=== PATIENT | female | born 1985 | race Caucasian/White ===

== ENCOUNTER 2020-06-21 13:42 | Emergency (ER) | payer SELFPAY ==
[2020-06-21 13:57] VITALS: BP 174/80; PULSE 85; RESP 16; TEMP 37.1; O2SAT 100
--- NOTE | 2020-06-21 16:03 | ED.ABDPAIN ---
HPI - Abdominal Pain General Chief Complaint: Abdominal Pain Stated Complaint: abdominal pain Source: patient and RN notes reviewed Limitations: no limitations History of Present Illness HPI narrative: The patient, who is an occ smoker/drinker on mood meds , presents with right, upper abdominal pain. Patient states she has at least a week long history of right-sided, ant costal abdominal pain. This is associated with 1 week worsening of a year history of nausea and occasional vomiting; last emesis was a half a week ago. No fever, cough, blood/hematuria, dysuria/urgency --but she does have some urinary frequency yet she is drinking more. No vaginal discharge; she had a negative test yesterday. Symptoms are mild to moderate , worse w/ activity or sometimes eating that causes nausea, and improved x2day. She declines same day hospital referral after calling spouse and after Advised to go to higher-level care facility to higher level testing , because for possible diagnosis of serious problems [gallstones, kidney stone, atypical appendicitis, etc]. Related Data Home Medications Medication Instructions Recorded Confirmed bupropion HCl mg PO 06/21/20 clonazepam 06/21/20 desog-e.estradiol/e.estradiol tablet 06/21/20 [Shay (28)] dextroamphetamine-amphetamine 06/21/20 sertraline mg 06/21/20 Allergies Allergy/AdvReac Type Severity Reaction Status Date / Time codeine Allergy Intermediate FEELS YINAD Verified 11/06/18 15:25 dextromethorphan Allergy Intermediate FEELS WIERD Verified 11/06/18 15:25 Review of Systems Review of Systems: Narrative: The patient has been informed that they may have pre-hypertension or Hypertension based on a BP reading in the department. I recommend that the patient call the primary care provider listed on their discharge instructions or a physician of their choice this week to arrange follow up for further evaluation of possible pre-hypertension or Hypertension General/Constitutional: No weight loss,fever Respiratory: Denies: Hemoptysis Gastrointestinal: No Vomiting now-earlier in week, Bleeding-rectal Skin: No Lumps, eruption Neurologic: No Focal Weakness,Sz Hematologic: Denies: Petechiae/Purpura Psychiatric: No: Suicida ideationl PMFSH Comments At time of signature, agree with nursing past medical, surgical, social and family history. There is no relevant family history pertinent to the presenting complaint Exam Narrative: Exam Narrative: Appearance: Lean appearing, Conjunctiva clear Mouth/Throat: Normal appearing, Normal lips Supple Respiratory: Airway patent, No respiratory distress Abdomen: Soft, NT, No massess, No organomegaly (no rebound/ surgical signs), nl bowel sounds Musculoskeletal: Full ROM Skin: Warm, Dry Neurological: A&O x3, Normal affect Course Vital Signs Vital signs: Vital Signs Temperature 98.7 F 06/21/20 13:57 Pulse Rate 85 06/21/20 13:57 Respiratory Rate 16 06/21/20 13:57 Blood Pressure 174/80 H 06/21/20 13:57 Pulse Oximetry 100 06/21/20 13:57 Temperature 98.7 F 06/21/20 13:57 Pulse Rate 85 06/21/20 13:57 Respiratory Rate 16 06/21/20 13:57 Blood Pressure 174/80 H 06/21/20 13:57 Pulse Oximetry 100 06/21/20 13:57 MDM - Abdominal Pain Lab Data Labs: Urine Glucose Negative Reference Range: Negative Urine Bilirubin Negative Reference Range: Negative Urine Ketone 1+ Reference Range: Negative Urine Specific [place] 1.025 Reference Range:1.001-1.035 Urine Blood Negative Reference Range: Negative * * Urine pH 6.0 Reference Range: 5.0-9.0 Urine Protein Negative Reference Range: Negative Urine Urobilinogen 0.2 Reference Range: 0.2-1.0 Urine Nitrate
== END 2020-06-21 14:37 | disposition home or self-care (01) ==
PROVIDERS: Emergency Provider Emergency Medicine
DX: R10.11 Right upper quadrant pain (principal); F41.9 Anxiety disorder, unspecified; F32.9 Major depressive disorder, single episode, unspecified
CPT/HCPCS: 81003; 99213; G0463

== ENCOUNTER 2020-12-22 21:51 | Observation (INO) | payer OTHER, SELFPAY ==
[2020-12-22 22:21] VITALS: BP 158/94; PULSE 80
[2020-12-22 22:30] VITALS: BP 152/92; PULSE 72
[2020-12-22 22:38] LABS: Add Urine Microscopic? YES; Appearance Urine Cloudy (Clear); Bacteria Urine Trace /hpf; Bilirubin Urine Negative (Negative); Blood Urine Negative (Negative); Color Urine Yellow (Yellow); Glucose Urine UA Negative (Negative); Ketones Urine Negative (Negative); Leukocyte Esterase Ur Negative LEU/UL (Negative); Mucus Urine Rare /lpf; Nitrate Urine Negative (Negative); Protein Urine 1+ mg/dL (Negative); RBC Urine 0-2 /hpf (0-2); Specific Grav Ur 1.012 (1.001-1.035); Squamous Epithelial Cell Urine Rare /hpf (Few); Urobilinogen Urine Negative mg/dL (<2.0); WBC Urine 0-3 /hpf
[2020-12-22 22:40] VITALS: BMI 28.4
--- NOTE | 2020-12-22 22:41 | OBADM ---
This patient, Ivy Rizzo, admitted to the OB room [facility] Post 117 for observation. Patient/family oriented to hospital policies and general routines including ID bracelet, bed and alarms, visiting hours, pain management, procedures, bathroom and other care routines, personal items, smoking policy, room service/diet, and visiting hours. Patient/Family are encouraged to report perceived risks to care and to ask questions if they do not understand what they are told or what they should do.
[2020-12-22 22:45] VITALS: BP 151/90; PULSE 72
--- NOTE | 2020-12-22 22:52 | PC.NURSE ---
[id number] Mohsen Fernandes MD responded to page. Orders for blood draws. If labs OK then DC pt and follow up with Ralph GRAF in AM. Call back if pt pressures increase or bloodwork is abnormal.
[2020-12-22 23:00] VITALS: BP 157/91; PULSE 75
[2020-12-22 23:15] VITALS: BP 145/92; PULSE 86
[2020-12-22 23:20] LABS: Basophils Absolute Auto 0.1 K/mm3 (0.0-0.1); Basophils Percent Auto 0.4 % (0.2-1.2); Eosinophils Absolute Auto 0.2 K/mm3 (0-0.3); Eosinophils Percent Auto 1.2 % (0-4.4); Hematocrit 29.1 % (37.0-47.0); Hemoglobin 9.8 g/dL (12.0-15.0); Immature Granulocyte Absolute 0.21 K/mm3 (0.00-0.031); Immature Granulocyte Percent A 1.6 % (0-0.5); Lymphocytes Absolute Auto 1.76 K/mm3 (0.9-3.2); Lymphocytes Percent Auto 13.8 % (18.3-44.2); Mean Corpuscular HGB Conc 33.7 g/dl (32-36); Mean Corpuscular Hemoglobin 30.2 pg (26-34); Mean Corpuscular Volume 89.5 fl (80-100); Mean Platelet Volume 10.4 fl (7.4-10.4); Monocytes Absolute Auto 0.9 K/mm3 (0.1-0.6); Monocytes Percent Auto 7.3 % (2.6-8.5); Neutrophils Absolute Auto 9.7 K/mm3 (1.3-6.7); Neutrophils Percent Auto 75.7 % (45.5-73.1); Platelet Count Result 254 k/mm3 (150-375); Red Blood Count 3.25 M/mm3 (4.2-5.4); Red Cell Distribution Width 11.6 % (11.5-14.5); White Blood Count 12.8 K/mm3 (4.5-10.0)
[2020-12-22 23:30] VITALS: BP 147/87; PULSE 69
[2020-12-22 23:30] LABS: Alanine Aminotransferase 14 U/L (4-35); Albumin Level 3.4 g/dL (3.5-5.1); Alkaline Phosphatase 108 U/L (38-126); Anion Gap 3 mmol/L (8-16); Aspartate Amino Transferase 29 U/L (14-36); Bilirubin,Total 0.1 mg/dL (0.2-1.3); Blood Urea Nitrogen 18 mg/dL (7-17); Calcium 9.4 mg/dL (8.4-10.2); Carbon Dioxide 27 mmol/L (22-30); Chloride 105 mmol/L (98-107); Estimated CRCL calculation 82 ml/min; Estimated Glomerular Filt Rate > 60; Glucose 75 mg/dL (65-105); Potassium 4.1 mmol/L (3.4-5.0); Sodium 135 mmol/L (137-145); Uric Acid 5.4 mg/dL (2.5-7.5)
--- NOTE | 2020-12-25 08:47 | P.PNOB_ITS ---
OB - Triage/Final Diagnosis Visit Information Reason for evaluation: threatened labor Comments/Additional reasons for admission: I have assessed the risk for this patient, Ivy Rizzo, and determined that she would benefit from observation care. Evaluation Laboratory results: Laboratory Tests 12/22/20 12/22/20 12/22/20 22:28 23:11 23:11 WBC 12.8 H RBC 3.25 L Hgb 9.8 L Hct 29.1 L MCV 89.5 MCH 30.2 MCHC 33.7 RDW 11.6 Plt Count 254 MPV 10.4 Immature Gran % (Auto) 1.6 H Neut % (Auto) 75.7 H Lymph % (Auto) 13.8 L [place] % (Auto) 7.3 Eos % (Auto) 1.2 Baso % (Auto) 0.4 Lymph # (Auto) 1.76 [place] # (Auto) 0.9 H Eos # (Auto) 0.2 Baso # (Auto) 0.1 Abs Immat Gran (auto) 0.21 H Absolute Neuts (auto) 9.7 H Absolute Nucleated RBC 0.0 Nucleated RBC % 0.0 Sodium 135 L Potassium 4.1 Chloride 105 Carbon Dioxide 27 Anion Gap 3 L BUN 18 H Creatinine 0.90 Estim Creat Clear Calc 82 Estimated GFR > 60 Glucose 75 Uric Acid 5.4 Calcium 9.4 Total Bilirubin 0.1 L AST 29 ALT 14 Alkaline Phosphatase 108 Total Protein 6.0 L Albumin 3.4 L Urine Color Yellow Urine Appearance Cloudy H Urine pH 7.0 Ur Specific [place] 1.012 Urine Protein 1+ H Urine Glucose (UA) Negative Urine Ketones Negative Ur Blood (Man) Negative Urine Nitrate Negative Urine Bilirubin Negative Urine Urobilinogen Negative Leukocyte Esterase Rfl Negative Urine RBC 0-2 Urine WBC 0-3 Ur Squamous Epith Cells Rare Urine Bacteria Trace Urine Mucus Rare
== END 2020-12-23 00:05 | disposition home or self-care (01) ==
PROVIDERS: Admitting Provider Obstetrics & Gynecology; Visit Provider Obstetrics & Gynecology
DX: O47.9 False labor, unspecified (principal); Z3A.00 Weeks of gestation of pregnancy not specified
CPT/HCPCS: 36415; 80053; 81001; 84550; 85025; G0378; G0379

== ENCOUNTER 2020-12-25 09:26 | Outpatient (CLI) | payer OTHER, SELFPAY ==
[2020-12-25 09:49] VITALS: BMI 28.0
[2020-12-25 10:03] LABS: Collection Time Urine 24 HOURS
[2020-12-25 10:11] LABS: Creatinine Clearance Urine 80.5 ml/min (75-125); Creatinine Urine 87.2 mg/dL; Patient Weight 174 Lbs; Total Protein Urine 24 Hr 351 MG/DAY (28-141); Total Protein Urine Random 27 mg/dL; Total Volume 24 Hour Urine 1300 ml
== END 2020-12-25 09:27 | disposition home or self-care (01) ==
LOC: ANHOBOP 09:42
PROVIDERS: Visit Provider Obstetrics & Gynecology
DX: O13.9 Gestational [pregnancy-induced] hypertension without significant proteinuria, unspecified trimester (principal); Z3A.00 Weeks of gestation of pregnancy not specified
CPT/HCPCS: 81050; 82575; 84156

== ENCOUNTER 2020-12-26 12:46 | Observation (INO) | payer OTHER, SELFPAY ==
[2020-12-26] VITALS (8 sets, daily range): BP systolic 145–155; BP diastolic 81–94; PULSE 72–88; RESP 18; TEMP 36.8; O2SAT 97; BMI 29.3
--- NOTE | ~2020-12-26 | US_ITS ---
EXAMINATION: US OB BPP wo non-stress DATE: 12/26/2020 14:55 INDICATION: Hypertension. Third trimester of TECHNIQUE: Real-time pelvic ultrasound was performed. The interpreting radiologist was not present fo r the study. COMPARISON: None. FINDINGS: There is a single living fetus in vertex presentation. Placental tissue seen along the anterior and a long the posterior wall of the uterus. A direct communication between the to portions of the placenta is not identified on the provided imaging. Also not identified is the placental side of cord implant ation. heart rate is 135 beats per minute (bpm). Amniotic fluid volume is subjectively normal. Biophysical profile performed by the technologist: breathing (30 sec sustained breathing in 30 minutes): 2 out of 2 movement (3 gross body movements in 30 minutes): 2 out of 2 tone (one episode of tnnrddq-geadeutrm-swmmehg limb movement): 2 out of 2 Amniotic fluid pocket (2 cm): 2 out of 2 Total score: 8 out of 8 IMPRESSION: 1. Single living fetus in vertex presentation. 2. Biophysical profile 8 out of 8. Reviewed, dictated and finalized at location B.
--- NOTE | 2020-12-26 13:15 | OBADM ---
This patient, Ivy Rizzo, admitted to the OB room [facility] for observation. Patient/family oriented to hospital policies and general routines including ID bracelet, bed and alarms, visiting hours, pain management, procedures, bathroom and other care routines, personal items, smoking policy, room service/diet, and visiting hours. Patient/Family are encouraged to report perceived risks to care and to ask questions if they do not understand what they are told or what they should do.
--- NOTE | 2020-12-26 13:22 | PM.IMHP ---
H&P: HPI History of Present Illness Date/Time: 12/26/20 [id number] at 30w3d who presents for complaints of shortness of breath and overall malaise. Pt had been seen earlier in the week for wrosening edema and elevated BP. she wasstarted on labetalol and had PIH labs drawn. Initial lab work was wnl but 24 hr urine protien was elevated ruling her in for preeclampsia. Pt denies scotoma or RUQ pain. Pt states she has had worsening anxiety and a feeling of impending doom. She endoreses good movement. Chief Complaint: preeclampsia Review of Systems Review of Systems: All systems reviewed & are unremarkable except as noted in HPI and below Meds Home Medications and Allergies Home Medications Medication Instructions Recorded Confirmed Type clonazepam 06/21/20 History sertraline mg 06/21/20 History Allergies Allergy/AdvReac Type Severity Reaction Status Date / Time codeine Allergy Intermediate FEELS WIERD Verified 11/06/18 15:25 dextromethorphan Allergy Intermediate FEELS WIERD Verified 11/06/18 15:25 Vital Signs Vital Signs - 24 hr 12/26/20 13:16 Pulse Rate 79 Blood Pressure 146/87 H Exam Const: General: anxious HENMT: Head: atraumatic Eyes: General: appearance normal, both eyes and all related structures Neck: Neck: normal visual inspection Resp: Effort & Inspection: normal respiratory effort and able to speak in complete sentences Cardio: Jugular venous distension: no JVD Rate: regular rate Rhythm: regular rhythm GI: Inspection: normal to inspection (Gravid) GI Palp: No abdominal tenderness Back/Spine/Pelvis: Back: no CVA tenderness Skin: General skin exam: normal color and no rashes or lesions noted Neuro: General: oriented to person and deep tendon reflexes 2+ bilaterally Extrem: General: full ROM and pedal edema (3+) bilaterally Assessment and Plan Assessment and plan (1) Preeclampsia: Code(s): O14.90 - Unspecified pre-eclampsia, unspecified trimester Status: Acute Assessment and Plan: mild to severe range BP in office 24 hr TUP 351 mg on 12/25/20 on labetalol 200 mg BID c/o LE edema and GARCIA. denies scotoma or RUQ pain PIH labs on 12/22/20 wnl will repeat PIH labs today plan for betamethasone for potential early delivery will obtain BPP today plan for overnight observation continue to monitor BP, will adjust medications as necessary (2) Supervision of high risk , unspecified, third trimester: Code(s): O09.93 - Supervision of high risk , unspecified, third trimester Status: Acute Assessment and Plan: 35 yo at 30w3d Rh+ all PNL reviewed and normal (3) Advanced maternal age during : Status: Acute (4) History of gestational hypertension: Code(s): Z87.59 - Personal history of other complications of , childbirth and the puerperium Status: Acute (5) Narcolepsy: Code(s): G47.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
[2020-12-26] MEDS: BETAMETHASONE SOD PHOS/ACETATE 30 MG/5 ML VIAL (14:07)
[2020-12-26 15:35] LABS: Basophils Absolute Auto 0.1 K/mm3 (0.0-0.1); Basophils Percent Auto 0.5 % (0.2-1.2); Eosinophils Absolute Auto 0.1 K/mm3 (0-0.3); Hematocrit 27.7 % (37.0-47.0); Hemoglobin 9.2 g/dL (12.0-15.0); Immature Granulocyte Absolute 0.31 K/mm3 (0.00-0.031); Immature Granulocyte Percent A 2.5 % (0-0.5); Lymphocytes Absolute Auto 1.19 K/mm3 (0.9-3.2); Lymphocytes Percent Auto 9.8 % (18.3-44.2); Mean Corpuscular HGB Conc 33.2 g/dl (32-36); Mean Corpuscular Hemoglobin 30.2 pg (26-34); Mean Corpuscular Volume 90.8 fl (80-100); Mean Platelet Volume 10.1 fl (7.4-10.4); Monocytes Absolute Auto 0.5 K/mm3 (0.1-0.6); Monocytes Percent Auto 4.3 % (2.6-8.5); Neutrophils Percent Auto 81.9 % (45.5-73.1); Nucleated Red Blood Cells Perc 0.3 % (0.0-0.2); Platelet Count Result 229 k/mm3 (150-375); Red Blood Count 3.05 M/mm3 (4.2-5.4); White Blood Count 12.2 K/mm3 (4.5-10.0)
[2020-12-26 15:46] LABS: Alanine Aminotransferase 13 U/L (4-35); Albumin Level 3.1 g/dL (3.5-5.1); Alkaline Phosphatase 100 U/L (38-126); Anion Gap 3 mmol/L (8-16); Aspartate Amino Transferase 27 U/L (14-36); Bilirubin,Total < 0.1 mg/dL (0.2-1.3); Blood Urea Nitrogen 13 mg/dL (7-17); Calcium 8.6 mg/dL (8.4-10.2); Carbon Dioxide 25 mmol/L (22-30); Chloride 107 mmol/L (98-107); Estimated Glomerular Filt Rate > 60; Glucose 94 mg/dL (65-105); Potassium 4.4 mmol/L (3.4-5.0); Sodium 135 mmol/L (137-145); Uric Acid 5.6 mg/dL (2.5-7.5)
[2020-12-26] MEDS: LABETALOL HCL 100 MG TABLET 200 MG PO (21:01)
[2020-12-27] VITALS (10 sets, daily range): BP systolic 138–149; BP diastolic 68–83; PULSE 75–89; RESP 18; TEMP 37.1–37.2
[2020-12-27] MEDS: ACETAMINOPHEN 500 MG TABLET 1000 MG PO (01:35)
--- NOTE | 2020-12-27 06:30 | PC.NURSE ---
Pt resting. Pt states headache is not too bad, just annoying . Denies any needs at this time.
--- NOTE | 2020-12-27 08:46 | PM.DS ---
DS: Admitting Diagnosis Admitting Diagnosis Admitting Diagnosis: Preeclampsia DS: Discharge Diagnosis Discharge Diagnosis (1) Preeclampsia: Code(s): O14.90 - Unspecified pre-eclampsia, unspecified trimester Status: Acute DS: Summary Hospital Course Hospital Course: 35 yo at 31w1d who was admitted for observation of preeclampsia. Pt had been complaining of worsening SOB. She had been having worsening LE edema, GARCIA and elevated BP. Pt recently started on Labetalol. 24 hour TUP returned elevated ruling her in for Preeclampsia. Overnight pt had good BP control with labetalol. Her repeat PIH labs were wnl. She had an 8/8 BPP. This morning pt still complains of a GARCIA. She states she overall feels much better. She attributes her SOB to a panic attack over how she was feeling. She endorses good movement. She denies any vaginal bleeding, contractions, or leakage of fluid. Status at Discharge Functional status at discharge: independent ambulation Overall status at discharge: patient is back to baseline Time Spent with Patient Time attestation: Total time spent providing and/or coordinating discharge services: Time spent: Less than 30 minutes Exam Const: General: cooperative, comfortable and no acute distress Eyes: General: appearance normal, both eyes and all related structures Neck: Neck: normal visual inspection Resp: Effort & Inspection: normal respiratory effort and able to speak in complete sentences Cardio: Rate: regular rate Rhythm: regular rhythm GI: Inspection: normal to inspection (gravid) GI Palp: No abdominal tenderness Skin: General skin exam: normal color and no rashes or lesions noted Neuro: General: patient oriented x3 and deep tendon reflexes 2+ bilaterally Extrem: General: edema (3+) bilateral Psych: Appearance: grossly normal and well kempt Mental Status: mental status grossly normal DS: Data Data Completed and Pending Labs on day of discharge: Labs from last 24 hours 12/26/20 12/26/20 15:13 15:13 WBC 12.2 H RBC 3.05 L Hgb 9.2 L Hct 27.7 L MCV 90.8 MCH 30.2 MCHC 33.2 RDW 12.0 Plt Count 229 MPV 10.1 Immature Gran % (Auto) 2.5 H Neut % (Auto) 81.9 H Lymph % (Auto) 9.8 L [place] % (Auto) 4.3 Eos % (Auto) 1.0 Baso % (Auto) 0.5 Lymph # (Auto) 1.19 [place] # (Auto) 0.5 Eos # (Auto) 0.1 Baso # (Auto) 0.1 Abs Immat Gran (auto) 0.31 H Absolute Neuts (auto) 10.0 H Absolute Nucleated RBC 0.0 Nucleated RBC % 0.3 H Sodium 135 L Potassium 4.4 Chloride 107 Carbon Dioxide 25 Anion Gap 3 L BUN 13 D Creatinine 0.80 Estim Creat Clear Calc Not Reportable Estimated GFR > 60 Glucose 94 Uric Acid 5.6 Calcium 8.6 Total Bilirubin < 0.1 L AST 27 ALT 13 Alkaline Phosphatase 100 Total Protein 6.0 L Albumin 3.1 L Discharge Plan Discharge Discharging Clinician: Richard Marinelli Patient Disposition: Home, Self-Care Activity: no straining, pelvic rest and other - see discharge instructions Diet: regular Discharge Instructions: pt advised on limited activity and modified bed rest. Pt to start twice weekly NST's and weekly BPP Patient Instructions: Antibiotic Form, Preeclampsia During (ED), Preeclampsia During (GEN) Stand Alone Forms: General Discharge Information Follow-up/Referrals: Richard Marinelli MD [Physician] - Discharge Medications: New labetalol 100 mg Tablet 200 mg PO TID Qty: 90 RF: 0 Continued clonazepam 1 mg tablet 1 mg PO DAILY RF: 0 sertraline 50 mg tablet 50 mg PO DAILY RF: 0 ferrous sulfate [FeroSul] 325 mg (65 mg iron) tablet 325 mg PO DAILY RF: 0 Classic 28 mg iron- 800 mcg Tablet 1 tablet PO DAILY RF: 0 Discontinued labetalol 200 mg tablet 200 mg PO BID RF: 0 Date of admission: 12/26/20 12:46 Primary Care Provider: PHYSICIAN,BACTERIOLOGY RESEARCH ASSISTANT Admitting Provider: Adam Rosas
[2020-12-27] MEDS: LABETALOL HCL 100 MG TABLET 200 MG PO (09:06)
[2020-12-27] MEDS: BETAMETHASONE SOD PHOS/ACETATE 30 MG/5 ML VIAL 12 MG IM (14:25)
== END 2020-12-27 14:35 | disposition home or self-care (01) ==
PROVIDERS: Admitting Provider Student in an Organized Health Care Education/Training Program; Visit Provider Student in an Organized Health Care Education/Training Program
DX: O14.93 Unspecified pre-eclampsia, third trimester (principal); O99.343 Other mental disorders complicating pregnancy, third trimester; F32.9 Major depressive disorder, single episode, unspecified; Z3A.30 30 weeks gestation of pregnancy
CPT/HCPCS: 36415; 59025; 76819; 80053; 84550; 85025; 96372; A9270; G0378; G0379; J0702

== ENCOUNTER 2020-12-29 10:04 | Outpatient (CLI) | payer OTHER, SELFPAY ==
[2020-12-29] VITALS (38 sets, daily range): BP systolic 146–196; BP diastolic 82–116; PULSE 70–88
--- NOTE | 2020-12-29 10:30 | PC.NURSE ---
Dr Rosas notified of elevated BP's, upper abd pain, headache and not feeling well. Informed of brisk reflexes and change in status from last weeks assessment. Orders for labs, mag and HTN protocol. Will be down to see patient in about 1 hour.
[2020-12-29 10:48] LABS: Hematocrit 33.3 % (37.0-47.0); Hemoglobin 11.2 g/dL (12.0-15.0); Mean Corpuscular HGB Conc 33.6 g/dl (32-36); Mean Corpuscular Hemoglobin 30.8 pg (26-34); Mean Corpuscular Volume 91.5 fl (80-100); Mean Platelet Volume 10.2 fl (7.4-10.4); Platelet Count Result 292 k/mm3 (150-375); Red Blood Count 3.64 M/mm3 (4.2-5.4); Red Cell Distribution Width 12.5 % (11.5-14.5)
[2020-12-29] MEDS: MAGNESIUM SULF 4 GM/WATER100ML 4 GM/100 ML BAG IVPB (10:53)
[2020-12-29] MEDS: LACTATED RINGERS 1,000 ML 75 ML (10:54)
[2020-12-29] MEDS: LABETALOL HCL INJ 100 MG/20 ML VIAL 20 MG IV PUSH (10:56)
[2020-12-29 11:00] LABS: Alanine Aminotransferase 53 U/L (4-35); Albumin Level 3.4 g/dL (3.5-5.1); Alkaline Phosphatase 108 U/L (38-126); Anion Gap 6 mmol/L (8-16); Aspartate Amino Transferase 80 U/L (14-36); Bilirubin,Total < 0.1 mg/dL (0.2-1.3); Blood Urea Nitrogen 19 mg/dL (7-17); Calcium 10.2 mg/dL (8.4-10.2); Carbon Dioxide 24 mmol/L (22-30); Chloride 105 mmol/L (98-107); Estimated Glomerular Filt Rate > 60; Glucose 78 mg/dL (65-105); Potassium 4.4 mmol/L (3.4-5.0); Sodium 135 mmol/L (137-145); Uric Acid 5.5 mg/dL (2.5-7.5)
--- NOTE | 2020-12-29 11:22 | PC.NURSE ---
Dr Rosas updated on Labs, pain and BP's. Will be down to evaluate patient.
[2020-12-29] MEDS: MAGNESIUM SULF 20GM/WATER500ML 500 ML 50 MG IV CONT (11:31)
[2020-12-29] MEDS: FAMOTIDINE 20 MG/2 ML VIAL IV PUSH (11:32)
[2020-12-29] MEDS: ONDANSETRON INJ 4 MG/2 ML VIAL IV PUSH (11:32)
--- NOTE | 2020-12-29 11:56 | PC.NURSE ---
Dr Rosas here to see patient.
[2020-12-29] MEDS: LABETALOL HCL INJ 100 MG/20 ML VIAL 80 MG IV PUSH (12:03)
--- NOTE | 2020-12-29 12:08 | PM.IMHP ---
H&P: HPI History of Present Illness Date/Time: 12/29/20 12:08 35 y/o at 30 6/7 weeks here with abdominal pain and elevated bp. Last week had a 24 hour urine protein of 351 mg. Received betamethasone last week. Taking labetalol 200 mg tid. Had a dose this morning, but vomited a few minutes later. Chief Complaint: Abdominal pain Review of Systems Review of Systems: All systems reviewed & are unremarkable except as noted in HPI and below [facility] Past Medical History Medical History (Updated 12/29/20 @ 12:22 by Adam Rosas MD) Depression affecting History of gestational hypertension Migraines Narcolepsy Surgical History Surgical History History of tonsillectomy Meds Home Medications and Allergies Home Medications Medication Instructions Recorded Confirmed Type clonazepam 1 mg PO DAILY 06/21/20 12/26/20 History sertraline 50 mg PO DAILY 06/21/20 12/26/20 History Classic 1 tablet PO DAILY 12/26/20 12/26/20 History ferrous sulfate [FeroSul] 325 mg PO DAILY 12/26/20 12/26/20 History labetalol 200 mg PO TID #90 tablet 12/27/20 Rx Allergies Allergy/AdvReac Type Severity Reaction Status Date / Time codeine Allergy Intermediate FEELS WIERD Verified 11/06/18 15:25 dextromethorphan Allergy Intermediate FEELS WIERD Verified 11/06/18 15:25 Vital Signs Vital Signs - 24 hr 12/29/20 10:29 12/29/20 10:31 12/29/20 10:45 Pulse Rate 74 74 79 Blood Pressure 195/105 H 196/91 H 195/113 H 12/29/20 10:56 12/29/20 11:00 12/29/20 11:02 Pulse Rate 78 88 77 Blood Pressure 170/102 H 183/116 H 12/29/20 11:04 12/29/20 11:07 12/29/20 11:09 Pulse Rate 80 78 78 Blood Pressure 187/106 H 177/104 H 175/109 H 12/29/20 11:12 12/29/20 11:15 12/29/20 11:18 Pulse Rate 76 79 79 Blood Pressure 172/104 H 162/104 H 164/102 H 12/29/20 11:21 12/29/20 11:24 12/29/20 11:28 Pulse Rate 78 78 78 Blood Pressure 170/101 H 164/101 H 171/104 H 12/29/20 11:30 12/29/20 11:33 12/29/20 11:37 Pulse Rate 76 77 77 Blood Pressure 172/99 H 175/105 H 178/102 H 12/29/20 11:39 12/29/20 11:42 12/29/20 11:51 Pulse Rate 76 75 75 Blood Pressure 174/108 H 163/107 H 174/103 H 12/29/20 12:00 12/29/20 12:03 Pulse Rate 77 76 Blood Pressure 175/98 H Exam Const: Orientation/consciousness: patient oriented x3 Other: Well-developed, well-nourished female in no acute distress. BP 170/100. Otherwise, AVSS. Neck: Thyroid: thyroid normal Lymphatic: no lymphadenopathy noted (in neck, axilla or inguinal nodes) Resp: Effort & Inspection: normal respiratory effort Auscultation: clear to auscultation bilaterally Cardio: Rate: regular rate Rhythm: regular rhythm Heart sounds: S1 normal heart sound present and S2 normal heart sound present GI: Other: ABD: Soft, uterus is nontender. She has midepigastric tenderness. No RUQ tenderness. NST good variability, no decelerations. TOCO: no contractions. : General: Yes no CVA tenderness Other: Cervix closed, thick. Back/Spine/Pelvis: Back: no CVA tenderness Skin: General skin exam: normal color and no rashes or lesions noted Neuro: General: patient oriented x3 Extrem: Other: Extremities: nontender with no edema Psych: Mental Status: mental status grossly normal Affect: normal affect H&P: Results Labs Labs: Short CBC 12/29/20 Range/Units 10:42 WBC 23.0 H (4.5-10.0) K/mm3 Hgb 11.2 L (12.0-15.0) g/dL Hct 33.3 L (37.0-47.0) % Plt Count 292 (150-375) k/mm3 BMP 12/29/20 10:42 Sodium 135 L Potassium 4.4 Chloride 105 Carbon Dioxide 24 BUN 19 H Creatinine 0.80 Glucose 78 Calcium 10.2 Liver Function 12/29/20 Range/Units 10:42 Total Bilirubin < 0.1 L (0.2-1.3) mg/dL AST 80 H (14-36) U/L ALT 53 H (4-35) U/L Alkaline Phosphatase 108 (38-126) U/L Albumin 3.4 L (3.5-5.1) g/dL Assessment and Plan Assessment and p
[2020-12-29] MEDS: fentaNYL CITRATE INJ (*CRX) 100 MCG/2 ML VIAL 50 MCG IV PUSH (12:15)
[2020-12-29 12:25] LABS: Basophils Absolute Manual 0.23 K/mm3 (0.0-0.1); Basophils Percent Manual 1 % (0-1); Lymphocytes Absolute Manual 2.07 K/mm3 (1.1-4.5); Monocytes Absolute Manual 1.38 K/mm3 (0.1-0.90); Monocytes Percent Manual 6 % (3-9); Neutrophils Percent Manual 84 % (46-73); Nucleated Red Blood Cells 1 %; Total Cells Counted 100
[2020-12-29 12:27] LABS: Hypochromasia 2+ (NORMAL); Platelet Estimate Adequate (Adequate)
--- NOTE | 2020-12-29 12:29 | PC.NURSE ---
Report called to TODD Calixt[facility]. WIll leave shortly for pickup.
== END 2020-12-29 13:35 | disposition short-term general hospital (02) ==
LOC: ANHOBOP 10:25 → ANHOBPP 10:26
PROVIDERS: Visit Provider Obstetrics & Gynecology
DX: O14.90 Unspecified pre-eclampsia, unspecified trimester (principal); Z3A.00 Weeks of gestation of pregnancy not specified
CPT/HCPCS: 36415; 80053; 84550; 85025; 99199; J2405; J3010; J3475; J7120